=== PATIENT | female | born 1935 | race Caucasian/White ===

== ENCOUNTER 2018-10-21 15:00 | Emergency (ER) | payer OTHER ==
[2018-10-21] MEDS ORDERED: oxyCODONE HCL 5 MG TABLET PO ONE (15:10)
[2018-10-21] MEDS ORDERED: ACETAMINOPHEN 500 MG TABLET (FP) PO ONE (15:14)
--- NOTE | 2018-10-21 15:14 | PDOC ---
History of Present Illness - General Chief Complaint: Injury Stated Complaint: RT ARM PAIN S/P FALL Time Seen by Provider: 10/21/18 15:09 History Source: Patient, EMS Exam Limitations: No Limitations - History of Present Illness Initial Comments: 10/21/18 15:18 HPI 83 YOF with h/o HTN, HLD, DM2, anxiety, arthritis presenting with right shoulder pain s/p trip and fall at dance exercise class [employer]. she states she was at the exercise class when she was running to a friend, tripped over the leg of the chair and landed on the floor with RUE extended out. No LOC or head injury. No cp, sob, AP, pelvis pain, weakness or paresthesias, neck or back pain. no prodromal sx Allergies: levaquin Past Medical History: HTN, HLD, DM2, anxiety, arthritis Social history: Lives at [facility] assisted living. No smoking. No alcohol. No illicit drugs. Surgical history: cholecystectomy PMD: Dr Sloan ===== ROS HEENT: no headache or dizziness. No visual/hearing disturbances. CVS: no cp or syncope. Resp: no sob. Gastrointestinal: no abdominal pain MUSCULOSKELETAL: +right shoulder pain.. No neck or back pain. SKIN: no redness or skin changes, no discharge, no rash. No wounds. Hematologic: no easy bruising/bleeding. NEUROLOGIC: No headache, dizziness, LOC or altered mental status. No weakness, numbness or tingling. Allergic/Immunologic: levaquin allergy. All other systems reviewed and negative, or as documented in HPI. PE: General: GCS 15 NAD, well appearing HEENT: NCAT, PERRL, EOMI. Airway intact. No battles sign or raccoon eyes. No e/ o ocular. Dentition intact. No e/o septal hematoma, nasal bridge stable. Neck: neck supple, no midline C spine tenderness or deformity, ROM intact. No anterior mass or crepitus, trachea midline. Resp: Lungs clear bilaterally Chest: no clavicle or chest wall tenderness or crepitus CVS: RRR, 2+ pulses throughout. Abdomen: Abdomen soft, nontender Back: Back nontender, no midline spinal tenderness along cervical/thoracic/ lumbar spine, FROM, no stepoffs. MSK: Pelvis stable, extremities symmetric. shoulder abduction/adduction/flexion/extension limited 2/2 pain. +right anterior shoulder and prox humerus tenderness to palp. Bilateral prox strength 5 /5 actively against resistance. 5/5 shoulder shrug strength. deltoid sensation intact; sensation grossly intact in median/radial/ulnar distribution. 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 2+ radialis pulses bilaterally and symmetric. no tenderness along deep venous system. Neuro: Alert, oriented appropriately. no focal neuro deficits. Sensation and strength intact throughout. Gait normal/stable. Skin: intact, normal color and well perfused. 10/21/18 15:18 10/21/18 15:56 Occurred: reports: just prior to arrival Past History - Past Medical History Allergies/Adverse Reactions: Allergies Allergy/AdvReac Type Severity Reaction Status Date / Time levofloxacin [From Levaquin] Allergy Verified 10/21/18 15:08 ED Treatment Course - RADIOLOGY Radiology Studies Ordered: Category Date Time Status HUMERUS-RIGHT [RAD] Stat Radiology 10/21/18 15:09 Ordered SHOULDER-RIGHT [RAD] Stat Radiology 10/21/18 15:09 Ordered Medical Decision Making - Medical Decision Making 10/21/18 16:27 hpi as documented VS wnl given motrin tylenol here. declined opioids, which is appropriate. clinically suspecting humerus fx/ vs dislocation Xray right shoulder with displaced right humerus fx proximally. NVI, 2+ pulses. WWP. ortho cs with Dr Ray, can follow up in 3 days outpatient maintain in shoulder sling and immobilize, RICE. otc analgesia, preferably Tyl/motrin as needed no narcotics, given elderly age, risk of falls and further injury. back to [facility] facility. spoke with daughter Jaclyn on phone with care and instructions and presumptive course Pt to be discharged in stable condition. Patient and family made aware of impression and plan, return precautions discussed (including but not limited to worsening pain or symptoms), fevers, or signs of infection, chest pain, respiratory distress, inability to tolerate oral intake, dehydration, syncope, or neurologic changes). Follow up with PMD and/or target protection specialist as recommended, follow up information provided, take medications as instructed for duration of time. continue with supportive care, avoid triggers and precipitants. Patient does not suffer from an acute life-threatening medical condition at this time she is safe for outpatient follow-up. 10/21/18 16:29 *DC/Admit/Observation/Transfer Diagnosis at time of Disposition: Fracture, humerus, proximal Qualifiers: Encounter type: initial encounter Fracture type: closed Fracture morphology: other fracture Fracture alignment: displaced Laterality: right Qualified Code(s) : S42.291A - Other displaced fracture of upper end of right humerus, initial encounter for closed fracture - Discharge Dispostion Disposition: HOME Condition at time of disposition: Stable - Referrals Referrals: Alberto Sloan MD [Primary Care Provider] - Chance Ray MD [Staff Physician] - - Patient Instructions Printed Discharge Instructions: How to Use a Sling, How to Prevent Falls, DI for Humeral Fracture Additional Instructions: you have a right sided proximal humerus fracture, displaced, closed. you are to follow with orthopedics early next week, on Wednesday10/24/18 here at [facility] for evaluation you are to maintain the sling for immobilization. monitor for weakness, numbness, tingling or skin changes or worsening pain may take tylenol every 6 hours as needed for pain. Orthopedics referral provided, please see Dr Ray on Wednesday as above - call the number provided. FALL PREVENTION AT HOME WHAT YOU NEED TO KNOW There are many different factors that can increase your risk of falls. Falls can happen any time, but the majority of them occur in the home. Fall prevention includes ways to make your home and other areas safer. It also includes ways you can move more carefully to prevent a fall. Health conditions that cause changes in your blood pressure, vision, or muscle strength and coordination may increase your risk for falls. Medicines, including anesthesia, may increase your risk for falls if they make you dizzy, weak, or sleepy. FALL PREVENTION TIPS Stand or sit up slowly. This may help you keep your balance and prevent falls. Do not walk and talk at the same time. Concentrate on the task of walking and continue the conversation after you've reached a safe place. Wear shoes that fit well and have soles that landscape laborer. Wear shoes both inside and outside. Use slippers with good landscape laborer. Avoid shoes with high heels. Use assistive devices as directed. Your healthcare provider may suggest that you use a cane or walker to help you keep you balance. Be sure you have adequate lighting throughout your house. Keep paths clear. Remove books, shoes and other objects from walkways and stairs. Keep cords for telephones and lamps out of the way so you dont need to walk over them. Remove small rugs or secure them with double-sided tape. This will prevent you from tripping. Use a nightlight when getting out of bed at night. Stay active to maintain overall strength and endurance. Know your limitations. If there is a task you can not complete with ease, do not risk a fall by trying to complete it. Call 911 or have someone else call if: You have fallen and are unconscious You have fallen and cannot move part of your body Contact your healthcare provider if: You have fallen and have pain or a headache You have questions or concerns about your condition or care. - Post Discharge Activity
[2018-10-21] MEDS ORDERED: ACETAMINOPHEN 325 MG TABLET (FP) ONE (15:15)
[2018-10-21] MEDS ORDERED: ACETAMINOPHEN 500 MG TABLET (FP) ONE (15:17)
[2018-10-21 15:23] VITALS: BP 148/75; PULSE 58; TEMP 97.5; BMI 30.9
[2018-10-21] MEDS ORDERED: IBUPROFEN 600 MG TABLET (FP) PO ONE ×2 (16:15)
== END 2018-10-21 16:40 | disposition home or self-care (01) ==
LOC: FER 15:00
DX: S42.291A Other displaced fracture of upper end of right humerus, initial encounter for closed fracture (principal); W18.39XA Other fall on same level, initial encounter; Y93.41 Activity, dancing; Y92.89 Other specified places as the place of occurrence of the external cause; I10 Essential (primary) hypertension; E78.5 Hyperlipidemia, unspecified; E11.9 Type 2 diabetes mellitus without complications; F41.9 Anxiety disorder, unspecified
CPT/HCPCS: 73060-TC-RT-FY; 99283-25